=== PATIENT | female | born 1965 | race Caucasian/White ===

== ENCOUNTER 2019-06-12 19:08 | Emergency (ER) | payer OTHER ==
[~2019-06-12] VITALS: Ht 170.2 cm; Wt 84.0 kg
[2019-06-12] MEDS ORDERED: SODIUM CHLORIDE 0.9% 1,000 ML IV ONE (19:17)
[2019-06-12] MEDS ORDERED: DEXT 10% WATER 1,000 ML IV ONE (19:17)
[2019-06-12] MEDS ORDERED: ONDANSETRON HCL 4MG/2ML INJ IV STA (19:17)
[2019-06-12] MEDS ORDERED: DEXTROSE 50% WATER 50ML SYRINGE IV ONE ×3 (19:19→21:15)
[2019-06-12 19:47] LABS: BG CARBOXYHEMOGLOBIN 0.5 % (0.5-1.5); BG DEOXYHEMOGLOBIN 5.9 % (0.0-5.0); BG FRACTION INSPIRED OXYGEN 21; BG HCO3 ACT 22.4 mmol/L (22.0-26.0); BG METHEMOGLOBIN 0.3 % (0.0-1.5); BG OXYGEN SATURATION 94.1 % (92.0-98.5); BG OXYHEMOGLOBIN 93.3 % (94.0-97.0); BG PCO2 33.5 mmHg (35.0-45.0); BG PH 7.443 (7.350-7.450); BG SAMPLE SITE RIGHT BRACHIAL; BG TOTAL HEMOGLOBIN 12.9 g/dL (12.0-18.0); BG VENT MODE ROOM AIR
[2019-06-12 20:09] LABS: BASOPHILS % 0.6 % (0.0-2.0); EOSINOPHILS % 1.1 % (0.0-5.0); HEMATOCRIT. 37.9 % (36.0-48.0); HEMOGLOBIN. 12.3 g/dL (12.0-16.0); LYMPHOCYTES % 22.4 % (20.0-50.0); MEAN CORPUSCULAR HEMOGLOBIN 29.4 pg (28.0-32.0); MEAN CORPUSCULAR VOLUME 90.3 fL (81.0-99.0); MEAN PLATELET VOLUME 10.3 fl (7.4-10.4); MONOCYTES % 7.3 % (2.0-8.0); NEUTROPHILS % 68.6 % (40.0-76.0); PLATELET 267 x1000/uL (130-400)
[2019-06-12 20:14] LABS: CLARITY URINE CLOUDY (CLEAR); COLOR URINE YELLOW (YELLOW); KETONES URINE TRACE (NEGATIVE); LEUKOCYTE ESTERASE URINE TRACE (NEGATIVE); NITRITE URINE NEGATIVE (NEGATIVE); OCCULT BLOOD URINE NEGATIVE (NEGATIVE); PROTEIN URINE NEGATIVE (NEGATIVE); SPECIFIC GRAVITY URINE 1.021 (1.005-1.030); UROBILINOGEN URINE 0.2 E.U./dL (0.2-1.0)
[2019-06-12 20:19] LABS: CHLORIDE 89 mEq/L (98-107)
[2019-06-12 20:23] LABS: ETHANOL BLOOD < 10 mg/dL
[2019-06-12 20:26] LABS: HCG SCREEN NEGATIVE
[2019-06-12 20:39] LABS: *AMPHETAMINES SCREEN URINE NEGATIVE (NEGATIVE)
[2019-06-12 20:40] LABS: *BARBITURATES SCREEN URINE NEGATIVE (NEGATIVE); *BENZODIAZEPINES SCREEN URINE NEGATIVE (NEGATIVE); *COCAINE SCREEN URINE NEGATIVE (NEGATIVE); METHADONE URINE SCREEN NEGATIVE (NEGATIVE); OPIATES URINE SCREEN NEGATIVE (NEGATIVE); PHENCYCLIDINE URINE SCREEN NEGATIVE (NEGATIVE)
[2019-06-12 20:41] LABS: CANNABINOID URINE SCREEN NEGATIVE (NEGATIVE)
[2019-06-12 21:01] LABS: CHLORIDE 106 mEq/L (98-107)
[2019-06-13] MEDS ORDERED: DEXT 10% WATER 1,000 ML IV ONE (03:31)
[2019-06-13 04:43] LABS: CHLORIDE 107 mEq/L (98-107)
[2019-06-13 05:51] VITALS: BP 111/51
== END 2019-06-13 06:55 | disposition short-term general hospital (02) ==
LOC: EDBD 19:08 → ER 19:08
DX: G93.40 Encephalopathy, unspecified (principal); R41.82 Altered mental status, unspecified; R45.851 Suicidal ideations; J45.909 Unspecified asthma, uncomplicated; F32.9 Major depressive disorder, single episode, unspecified; E11.649 Type 2 diabetes mellitus with hypoglycemia without coma; T38.3X1A Poisoning by insulin and oral hypoglycemic [antidiabetic] drugs, accidental (unintentional), initial encounter; F16.10 Hallucinogen abuse, uncomplicated; R53.83 Other fatigue; R11.0 Nausea; Z59.0 Homelessness; Z79.4 Long term (current) use of insulin; Z88.8 Allergy status to other drugs, medicaments and biological substances; Z79.899 Other long term (current) drug therapy
CPT/HCPCS: 36415; 36600; 80048; 80053; 80305; 80307; 80320; 80329; 81003; 82140; 82375; 82805; 82962; 83690; 84443; 84703; 85025; 93005; 96361; 96374; 96375; 96376; 99285; J2405; J7030; Z7610; G0480

== ENCOUNTER 2021-11-25 14:45 | Emergency (ER) | payer OTHER ==
[~2021-11-25] VITALS: Ht 172.7 cm; Wt 111.0 kg
[2021-11-25] MEDS ORDERED: SODIUM CHLORIDE 0.9% 1,000 ML IV ONE (15:45)
[2021-11-25] MEDS ORDERED: METOCLOPRAMIDE HCL 10MG/2ML VIAL IV ONE (15:45)
[2021-11-25] MEDS ORDERED: LORAZEPAM 2MG/ML CPJ IV ONE (15:45)
[2021-11-25 16:07] LABS: BASOPHILS % 0.6 % (0.0-2.0); EOSINOPHILS % 0.9 % (0.0-5.0); HEMATOCRIT. 41.4 % (36.0-48.0); HEMOGLOBIN. 13.7 g/dL (12.0-16.0); LYMPHOCYTES % 15.9 % (20.0-50.0); MEAN CORPUSCULAR HEMOGLOBIN 27.6 pg (28.0-32.0); MEAN CORPUSCULAR VOLUME 83.4 fL (81.0-99.0); MEAN PLATELET VOLUME 9.6 fl (7.4-10.4); MONOCYTES % 6.2 % (2.0-8.0); NEUTROPHILS % 76.4 % (40.0-76.0); PLATELET 229 x1000/uL (130-400); RED BLOOD CELL COUNT 4.96 mill/uL (4.2-5.4); RED CELL DISTRIBUTION WIDTH 15.7 % (11.6-14.6)
[2021-11-25 16:20] LABS: CHLORIDE 109 mEq/L (98-107)
[2021-11-25] MEDS ORDERED: LORAZEPAM 2MG/ML CPJ IV NR (17:37)
[2021-11-25] MEDS ORDERED: METOCLOPRAMIDE HCL 10MG/2ML VIAL IV NR (17:37)
[2021-11-25] MEDS ORDERED: KETOROLAC 30MG/ML VIAL IV ONE (18:00)
[2021-11-25] MEDS ORDERED: MECL-159 MT (19:35)
[2021-11-25 20:00] VITALS: BP 134/59
== END 2021-11-25 20:05 | disposition home or self-care (01) ==
LOC: ER 14:55
DX: R51.9 Headache, unspecified (principal); R42 Dizziness and giddiness; J45.909 Unspecified asthma, uncomplicated; F32.9 Major depressive disorder, single episode, unspecified; E11.9 Type 2 diabetes mellitus without complications; Z88.8 Allergy status to other drugs, medicaments and biological substances; Z68.37 Body mass index [BMI] 37.0-37.9, adult
CPT/HCPCS: 36415; 70450; 80053; 85025; 96361; 96374; 96375; 99284; J1885; J2060; J2765; J7030